=== PATIENT | female | born 1940 | race Caucasian/White ===

== ENCOUNTER 2017-08-06 13:25 | Emergency (ER) | payer MEDICARE ==
[~2017-08-06] VITALS: Ht 157.5 cm; Wt 63.2 kg
[~2017-08-06 13:25] MED LIST: ASPI81 PO; CALC600T34 PO; CART240C4 PO; CITA-48 PO; FISH1000 PO; GLUCTAB PO; HYDR-2768 PO; LEVA500T PO; LORTA5 PO; METR-1 PO; SIMV10 PO; TAB-TAB PO; VITA500T10 PO; ZOFR4TAB3 SL
[2017-08-06 13:31] VITALS: BP 137/61; PULSE 78; RESP 16; TEMP 98.3; O2SAT 93
[2017-08-06] MEDS ORDERED: CITA40TA4 PO (13:55)
[2017-08-06] MEDS ORDERED: HYDR25TA5 PO (13:55)
[2017-08-06] MEDS ORDERED: NEUR100C PO (13:55)
[2017-08-06] MEDS ORDERED: METF500T PO (13:55)
[2017-08-06] MEDS ORDERED: SIMV10TA PO (13:55)
[2017-08-06] MEDS ORDERED: DILT240C44 PO (13:55)
--- NOTE | 2017-08-06 14:12 | PD ---
HPI Chief Complaint: Musculoskeletal Complaint Time Seen by Provider: 13:51 Travel History International Travel<30 days: No Contact w/Intl Traveler<30days: No Traveled to known affect area: No History of Present Illness HPI 76-year-old female presents to the emergency room for evaluation of left lower extremity pain and swelling that has been ongoing intermittently for the past month. It used to go away after elevating it and only return after walking around for a while but for the last week it has been persistent. She called her primary care physician who recommended she come to the emergency room for evaluation of possible blood clot. Patient denies any trauma or injury to the ankle. States she has mild pain with range of motion and ambulation. Pain is localized to the medial aspect. She has not taken anything for symptoms. Denies any right leg swelling. Denies history of CHF. She has neuropathy. She denies fever, chills, chest pain, shortness of breath. She denies history of any blood clots in the past. She is not on any blood thinners. PFSH Past Medical History Hx Anticoagulant Therapy: Yes (asa 81 mg) Anxiety: Yes Depression: No Heart Rhythm Problems: No Cancer: No Cardiovascular Problems: Yes (htn) High Cholesterol: Yes Chest Pain: No Congestive Heart Failure: No Diabetes: Yes Patient Takes Glucophage: Yes Endocrine: No Glaucoma: No Genitourinary: No Hepatitis: No Hiatal Hernia: No Hypertension: Yes Immune Disorder: No Medical other: Yes (CHRONIC BACK PAIN, NEUROPATHY) Musculoskeletal: Yes (ARTHRITIS, OSTEOPENIA) Neurologic: No Psychiatric: Yes (ANXIETY) Reproductive: No Respiratory: No Immunizations Current: Yes (SHINGLES 2012) Thyroid Disease: No Tetanus Vaccination: < 5 Years Influenza Vaccination: Yes ?: Not Menopausal: Yes Past Surgical History AICD: No Appendectomy: Yes Body Medical Devices: RT ANKLE PLATE AND SCREWS; RT ELBOW PLATE AND SCREWS Eye Surgery: Yes (BILATERAL CATARACT SX) Gynecologic Surgery: Yes (FIBROIDECTOMY) Joint Replacement: No Oral Surgery: Yes (TONSILLECTOMY) Pacemaker: No Tonsillectomy: Yes Other Surgery: Yes (RIGHT ANKLE REPAIR FRACTURE, RIGHT ELBOW X 2) Social History Alcohol Use: Yes (occas. mix drinks) Tobacco Use: No (QUIT 2008 smoked cigs) Substance Use: No Allergies-Medications (Allergen,Severity, Reaction): Coded Allergies: No Known Allergies (Verified Adverse Reaction, Unknown, 08/06/17) Reported Meds & Prescriptions Reported Meds & Active Scripts Active Reported Citalopram (Citalopram Hydrobromide) 40 Mg Tab 40 Mg PO DAILY Hydrochlorothiazide 25 Mg Tab 25 Mg PO DAILY Metformin (Metformin HCl) 500 Mg Tab 500 Mg PO BIDPC Diltiazem CD 24 HR 240 Mg Caper 240 Mg PO DAILY Neurontin (Gabapentin) 100 Mg Cap 100 Mg PO HS Simvastatin 10 Mg Tab 10 Mg PO DAILY Review of Systems Except as stated in HPI: all other systems reviewed are Neg Physical Exam Narrative GENERAL: Well-nourished, well-developed female no acute distress. Afebrile. Ambulatory. SKIN: Focused skin assessment warm/dry. HEAD: Normocephalic. EYES: No scleral icterus. No injection or drainage. NECK: Supple, trachea midline. No JVD or lymphadenopathy. CARDIOVASCULAR: Regular rate and rhythm without murmurs, gallops, or rubs. RESPIRATORY: Breath sounds equal bilaterally. No accessory muscle use. MUSCULOSKELETAL: No cyanosis. 1+ pitting edema to the left lower extremity. 2 + dorsalis pedis pulse. Limited range of motion of the ankle secondary to pain. Tenderness to palpation of the medial malleolus. Data Data Last Documented VS Vital Signs Date Time Temp Pulse Resp B/P (MAP) Pulse Ox O2 Delivery O2 Flow Rate FiO2 08/06/17 13:48 16 08/06/17 13:31 98.3 78 137/61 (86) 93 Orders Orders Us Leg Venous Doppler (08/06/17 ) MDM Medical Decision Making Medical Screen Exam Complete: Yes Emergency Medical Condition: Yes Medical Record Reviewed: Yes Differential Diagnosis Sprain, strain, contusion, inflammatory arthritis, DVT Narrative Course 76-year-old female presents to the emergency room for evaluation of left ankle tightness and swelling for the past 1 month. Swelling was initially intermittent and improved with elevating her leg. Over the past week it has become persistent. She denies any trauma or injury. Denies any significant pain, chest pain, or shortness of breath. Her PCP recommended she come to the emergency room for an ultrasound. Physical exam reveals 1+ pitting edema of the left lower extremity. Limited range of motion secondary to swelling. No erythema or ecchymosis. No increased warmth. No history of fevers. Vital signs stable. Ultrasound is negative for DVT. Given unilateral swelling, I suspect either inflammatory arthritis or venous insufficiency. Patient was told to wear compression stockings and follow-up with her primary care physician for outpatient labs. Told to return for worsening symptoms. She understands and agrees to plan. Diagnosis Primary Impression: Left ankle swelling Referrals: Primary Care Physician Additional Instructions: Rest and drink plenty of fluids. Compression stockings daily. Elevate legs at night. Follow-up with a primary care physician. Return to the emergency room for worsening symptoms. Disposition: 01 DISCHARGE HOME Condition: Stable Zaida Carney Aug 06, 2017 14:12
--- NOTE | 2017-08-06 15:36 | RADRPT ---
EXAM DATE/TIME: 08/06/2017 14:49 [facility] COMPARISON: No previous studies available for comparison. INDICATIONS : Left leg swelling. MEDICAL HISTORY : Hypercholesterolemia. Hypertension. Anticoagulant therapy. Diabetes. SURGICAL HISTORY : Tonsillectomy. Appendectomy. Bilateral cataract removal. Fibroidectomy. Bilateral bunionectomy. Lef t wrist surgery. ORIF right ankle. Left carpal tunnel release. Right elbow surgery. ENCOUNTER: Initial ACUITY: 1 day PAIN SCORE: 3/10 LOCATION: Left leg. TECHNIQUE: Venous ultrasound of the leg was performed from the inguinal ligament to the proximal calf. Real-vincent e, color Doppler and spectral tracing, compression and augmentation techniques were used. FINDINGS: There is normal compressibility of the deep venous system from the inguinal region to the proximal ca lf. No echogenic clot is seen in the lumen of the common femoral, femoral, popliteal, and posterior tibial veins. There is a normal response of the venous system to proximal and distal augmentation an d respiration. CONCLUSION: Negative for deep venous thrombosis. Orion Zheng MD FACR on August 06, 2017 at 15:35 Board Certified Radiologist. This report was verified electronically.
== END 2017-08-06 16:04 | disposition home or self-care (01) ==
LOC: PHEFT 13:25
DX: M25.472 Effusion, left ankle (principal); I10 Essential (primary) hypertension; E78.00 Pure hypercholesterolemia, unspecified; E11.9 Type 2 diabetes mellitus without complications; M19.90 Unspecified osteoarthritis, unspecified site; F41.9 Anxiety disorder, unspecified; Z87.891 Personal history of nicotine dependence; Z79.84 Long term (current) use of oral hypoglycemic drugs; Z79.899 Other long term (current) drug therapy
CPT/HCPCS: 93971